=== PATIENT | male | born 1960 | race Caucasian/White ===

== ENCOUNTER 2020-08-29 14:53 | Emergency (ER) | payer MEDICARE, MEDICAID, SELFPAY ==
[2020-08-29] VITALS (10 sets, daily range): BP systolic 135–154; BP diastolic 75–93; PULSE 73–86; RESP 16–23; TEMP 36.3; O2SAT 93–95
--- NOTE | ~2020-08-29 | XR_ITS ---
EXAMINATION: XR tibia fibula LT 2V DATE: 08/29/2020 18:42 INDICATION: Left knee pain. TECHNIQUE: 2 views of left tibia and fibula on 4 radiographs were obtained. COMPARISON: None. FINDINGS: Bone alignment is normal. No fracture. There is mild osteoarthritis of patellofemoral lucinda rtment of the knee. There is mild ankle joint osteoarthritis. There is a small knee joint effusion. IMPRESSION: 1. Mild polyarticular osteoarthritis. 2. Small left knee joint effusion. Reviewed, dictated and finalized at location A.
--- NOTE | ~2020-08-29 | XR_ITS ---
EXAMINATION: XR chest 2V DATE: 08/29/2020 15:44 INDICATION: Cough and recent pneumonia. TECHNIQUE: frontal and lateral views of the chest were obtained. COMPARISON: None FINDINGS: Elevation of the left hemidiaphragm. Oblique band of likely atelectasis the left lower lung zone. Add itional more subtle and less well-defined opacities in the bilateral lower lung zones which could rep resent additional atelectasis or pneumonia. No pleural effusion or pneumothorax. The cardiomediastina l silhouette is within normal limits for AP technique. Deformity of the left humeral head which could be developmental, sequela of old trauma or advanced osteoarthritis. IMPRESSION: 1. Opacities in the bilateral lower lung zones which could represent atelectasis and/or pneumonia. Reviewed, dictated and finalized at location A. IMPRESSION: 1. Opacities in the bilateral lower lung zones which could represent atelectasi s and/or pneumonia.
--- NOTE | ~2020-08-29 | CT_ITS ---
EXAMINATION: CT brain wo con DATE: 08/29/2020 17:04 INDICATION: Right hemiparesis. TECHNIQUE: Computed tomography (CT) of the head was performed without intravenous contrast. The mA wa s adjusted according to patient size. Iterative reconstruction technique was employed. The dose-lengt h product was 605.33 mGy-cm. COMPARISON: None FINDINGS: There is chronic encephalomalacia involving the right frontal, parietal, and temporal lobes and right insula. 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 There is no intracranial hemorrhage, a cute infarction, or abnormal intracranial mass lesion. There is ex vacuo dilatation of right lateral ventricle. There are changes of right-sided craniotomy. There are surgical clips in right sylvian fis sure. There is mild mucosal thickening in the paranasal sinuses. There are small bilateral mastoid ef fusions. IMPRESSION: 1. Chronic encephalomalacia involving the right frontal, parietal, and temporal lobes and right insul a. 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 Reviewed, dictated and finalized at location A. IMPRESSION: 1. Chronic encephalomalacia involving the right frontal, parietal, and temporal lobes and right insula. 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
--- NOTE | ~2020-08-29 | US_ITS ---
EXAMINATION: US venous doppler [facility] DATE: 08/29/2020 17:54 INDICATION: Left lower limb pain. TECHNIQUE: Grayscale ultrasound images without and with compression and Doppler ultrasound images of the left lower extremity veins were obtained. COMPARISON: None. FINDINGS: The visualized portions of left common femoral vein, profunda (deep) femoral vein, femoral vein, popl iteal vein, peroneal veins, posterior tibial veins, and greater saphenous vein outflow are patent. IMPRESSION: 1. No deep venous thrombosis. Reviewed, dictated and finalized at location A.
--- NOTE | 2020-08-29 15:07 | ED.SOB ---
HPI - SOB/Dyspnea General Chief Complaint: Shortness of Breath/Dyspnea Stated Complaint: sob/low o2 Time Seen by Provider: 08/29/20 14:58 Source: EMS Mode of arrival: EMS Limitations: altered mental status and clinical condition History of Present Illness HPI Narrative: 60-year-old male Sent from residential facility for evaluation of shortness of breath or Patient has a history of schizophrenia and traumatic brain injury and is a poor historian Orders from [facility] reflect that he had a chest x-ray ordered yesterday and was started on Ceftin and may have been on Augmentin prior to that however there is very little additional data or rationale for transfer presented with in their paperwork However after he had been here for a couple of hours his jig and fixture repairer arrived and mentioned that he had been sent for essentially these exact same problems to [facility] a week ago and has been there for 3 days and that they believe that is where the pneumonia diagnosis was made, she is not sure why the patient was sent here today versus having them go back to [facility], not quite sure what actually was done at [facility], but does mention that when he was originally sent over there they were more worried and continue to be more primarily worried that his right side has become weaker and that he is having pain in his left leg more so than having shortness of breath Related Data Allergies Allergy/AdvReac Type Severity Reaction Status Date / Time No Known Allergies Allergy Verified 08/29/20 15:10 Review of Systems Review of Systems: ROS unobtainable: Yes unobtainable due to medical condition and unobtainable due to mental status Respiratory: Respiratory: Reports dyspnea Gastrointestinal: Gastrointestinal: Denies vomiting PMFSH Social History Social History Gender identity (if verbalized by the patient): Male Exam Const: General: cooperative, no acute distress and ill appearing Limitations: altered mental status HENMT: Head: normal to inspection, normocephalic and atraumatic Ears: external ears normal General nose exam: no epistaxis Eyes: Conjunctivae: conjunctivae normal EOM: EOMs intact bilaterally Neck: Neck: normal visual inspection, supple and no JVD Resp: Effort & Inspection: normal respiratory effort and not labored Auscultation: crackles (Right base), no rales, no rhonchi, no wheezes and other (BS =) Cardio: Rate: regular rate Rhythm: regular rhythm Heart sounds: Murmur heart sound present GI: GI Palp: Yes Soft to palpation, No Tenderness to palpation present (GI), No Guarding due to palpation present (GI) and No Rebound tenderness present Skin: General skin exam: normal color and no rashes or lesions noted Neuro: General: moves all extremities Speech: Abnormal speech present Other: Facial asymmetry intention tremulousness on the right side Extrem: Other: He has trace pedal edema, normal pedal pulses, muscular atrophy on the left side Course Course Emergency Course: Discussed final results with patient and his jig and fixture repairer, effectively there are only mild changes on the chest x-ray and labs look pretty good, and nothing new on the head CT scan Vital Signs Vital signs: Vital Signs Temperature 36.3 C L 08/29/20 14:58 Pulse Rate 78 08/29/20 14:58 Respiratory Rate 16 08/29/20 14:58 Blood Pressure 137/93 H 08/29/20 14:58 Pulse Oximetry 93 08/29/20 14:58 Temperature 36.3 C L 08/29/20 14:58 Pulse Rate 75 08/29/20 15:30 Respiratory Rate 23 H 08/29/20 15:30 Blood Pressure 137/93 H 08/29/20 14:58 Pulse Oximetry 93 08/29/20 15:09 MDM - SOB/Dyspnea Lab Data Result diagrams: 08/29/20 15:19 08/29/20 15:19 Labs: Lab Results 08/29/20 08/29/20 08/29/20 Range/Units 15:19 15:19 15:19 WBC 8.8 (4.5-10.0) K/mm3 RBC 4.89 (4.6-6.20) M/mm3 Hgb 15.5 (14.0-18.0) g/dL Hct 47.2 (42.0-52.0) % MCV 96.5 (80-100)
--- NOTE | 2020-08-29 15:11 | ECG_ITS ---
Measurements Intervals Timber Rate: 78 P: 28 NM: 136 QRS: -8 QRSD: 86 T: 180 QT: 355 QTc: 405 Interpretive Statements SINUS RHYTHM ST-T WAVE ABNORMALITY IN ANTEROLAT/HIGH LAT LEADS- CONSIDER ISCHEMIA BASELINE ARTIFACT- I, II, III, AVR, AVL, AVF ABNORMAL ECG Electronically Signed On 08-29-2020 15:28:26 CDT by Richard Sharpe D.O.
--- NOTE | 2020-08-29 15:11 | PC.NURSE ---
placed on o2 at 2lpm n/c for room air sat 90-93%. pt denies sob
[2020-08-29] MEDS: ALBUTEROL SULFATE NEB 2.5 MG/0.5 ML INH 5 MG INHALATION ×2 (15:25→18:06)
[2020-08-29] MEDS: IPRATROPIUM BR 0.02% INH SOLN 0.5 MG/2.5 ML VIAL INHALATION ×2 (15:25→18:06)
[2020-08-29 15:30] LABS: Basophils Absolute Auto 0.1 K/mm3 (0.0-0.1); Basophils Percent Auto 0.7 % (0.2-1.2); Eosinophils Absolute Auto 0.2 K/mm3 (0-0.3); Eosinophils Percent Auto 1.7 % (0-4.4); Hematocrit 47.2 % (42.0-52.0); Hemoglobin 15.5 g/dL (14.0-18.0); Immature Granulocyte Absolute 0.12 K/mm3 (0.00-0.031); Immature Granulocyte Percent A 1.4 % (0-0.5); Lymphocytes Absolute Auto 1.99 K/mm3 (0.9-3.2); Lymphocytes Percent Auto 22.6 % (18.3-44.2); Mean Corpuscular HGB Conc 32.8 g/dl (32-36); Mean Corpuscular Hemoglobin 31.7 pg (26-34); Mean Corpuscular Volume 96.5 fl (80-100); Mean Platelet Volume 10.8 fl (7.4-10.4); Monocytes Absolute Auto 1.1 K/mm3 (0.1-0.6); Monocytes Percent Auto 12.9 % (2.6-8.5); Neutrophils Absolute Auto 5.4 K/mm3 (1.3-6.7); Neutrophils Percent Auto 60.7 % (45.5-73.1); Platelet Count Result 215 k/mm3 (150-375); Red Blood Count 4.89 M/mm3 (4.6-6.20); White Blood Count 8.8 K/mm3 (4.5-10.0)
[2020-08-29 15:42] LABS: Anion Gap 4 mmol/L (8-16); Blood Urea Nitrogen 6 mg/dL (9-20); Calcium 8.9 mg/dL (8.4-10.2); Carbon Dioxide 34 mmol/L (22-30); Chloride 106 mmol/L (98-107); Estimated CRCL calculation 91 ml/min; Estimated Glomerular Filt Rate > 60; Glucose 129 mg/dL (75-110); Potassium 3.4 mmol/L (3.4-5.0); Sodium 144 mmol/L (137-145)
[2020-08-29 15:53] LABS: Troponin I < 0.012 ng/mL (0.000-0.034)
[2020-08-29 15:59] LABS: NT Pro B Type Natriuretic Pept 159 pg/mL (5-100)
[2020-08-29 16:25] LABS: Alveolar/Arterial O2 Gradient 80.2 mmHg; Base Excess ABG 0.6 mEq/l (+/-2.0); Fractional Inspired Oxygen 28 %; Oxygen Content ABG 18.9 %vol (16.0-22.0); Oxygen Saturation ABG 93.1 % (95.0-100.0); Oxyhemoglobin 90.8 % THb (90.0-100.0); PCO2 ABG 44.3 mmHg (35.0-45.0); PO2 ABG 67.2 mmHg (80.0-100.0); Total Hemoglobin 14.8 g/dL (12.0-18.0); pH ABG 7.386 (7.350-7.450)
[2020-08-29 16:26] LABS: Device NASAL CANNULA; Modified Allen's Test Pass; Site Drawn RIGHT RADIAL
--- NOTE | 2020-08-29 18:24 | PC.NURSE ---
will xray lt leg and knee per [facility] home management supervisor's request
--- NOTE | 2020-08-29 19:28 | PC.NURSE ---
called [facility] to request transport . ETA 20 minutes.
--- NOTE | 2020-08-29 19:32 | PC.NURSE ---
awaiting ems for transport.
== END 2020-08-29 19:53 ==
PROVIDERS: Emergency Provider Emergency Medicine
DX: J44.9 Chronic obstructive pulmonary disease, unspecified (principal); J18.9 Pneumonia, unspecified organism; R94.31 Abnormal electrocardiogram [ECG] [EKG]; G93.89 Other specified disorders of brain
CPT/HCPCS: 36415; 36600; 70450; 71046; 73590; 80048; 82805; 83880; 84484; 85025; 93005; 93971; 94640; 96374; 99284; J1100

== ENCOUNTER 2023-02-18 08:42 | Outpatient (CLI) | payer OTHER, SELFPAY ==
--- NOTE | ~2023-02-18 | XR_ITS ---
EXAMINATION: XR_ENEMABAC_CR DATE: 02/18/2023 10:19 INDICATION: Incomplete colonoscopy TECHNIQUE: A radiology administrator radiograph was obtained. A catheter was inserted into the patient's rectum. Contra st was infused by gravity. Gas was infused by hand pump. Fluoroscopic spot images and conventional ra diographs were obtained. Fluoroscopy exposure time was 1.7 minutes. A total of 48 fluoroscopic images and 16 overhead radiographs were obtained. COMPARISON: None. FINDINGS: Redundancy to the colon with somewhat tortuous course to the sigmoid and transverse colon. There are a few scattered mobile lucent gas bubbles. There are a few scattered tiny diverticula. No strictures, mucosal irregularities or fixed filling defects to suggest polyps. IMPRESSION: 1. Redundant colon with the few scattered tiny diverticula. No polyps, strictures or other lesions co ncerning for malignancy identified. Reviewed, dictated and finalized at location A. IMPRESSION: 1. Redundant colon with the few scattered tiny diverticula. No polyps, strictur es or other lesions concerning for malignancy identified.
== END 2023-02-18 08:43 | disposition home or self-care (01) ==
PROVIDERS: Visit Provider Internal Medicine Gastroenterology
DX: K57.30 Diverticulosis of large intestine without perforation or abscess without bleeding (principal); R19.4 Change in bowel habit; Z53.09 Procedure and treatment not carried out because of other contraindication
CPT/HCPCS: 74280